=== PATIENT | female | born 1955 | race Caucasian/White ===

== ENCOUNTER 2018-03-05 05:43 | Inpatient (IN) | payer OTHER ==
[2018-03-05] MEDS: ONDANSETRON 4 MG INJ IV ×2 (07:01→17:50)
[2018-03-05] MEDS: SOD CHLORIDE 0.9% 1,000 ML IV ×4 (07:01→20:30)
[2018-03-05] MEDS: HYDROmorphONE 1 MG/ML SYG IV ×3 (07:01→21:52)
[2018-03-05 07:12] LABS: ADD MAN DIFF? NO
[2018-03-05 07:15] LABS: BASOPHILS % 0.3 % (0.0-2.0); EOSINOPHILS % 0.2 % (0.0-7.0); HEMATOCRIT 42.7 % (37.0-47.0); HEMOGLOBIN 14.7 g/dl (12.0-16.0); LYMPHOCYTES # 0.7 10^3/ul (0.8-2.9); LYMPHOCYTES % 6.7 % (15.0-51.0); MEAN CORPUSCULAR HEMOGLOBIN 33.4 pg (29.0-33.0); MEAN CORPUSCULAR HGB CONC 34.4 g/dl (32.0-37.0); MONOCYTE # 0.5 10^3/ul (0.3-0.9); MONOCYTES % 4.8 % (0.0-11.0); NEUTROPHIL # 9.1 10^3/ul (1.6-7.5); NEUTROPHILS % 87.6 % (39.0-77.0); PLATELET COUNT 100 10^3/UL (140-415); RED CELL DISTRIBUTION WIDTH 12.5 % (11.5-14.5)
[2018-03-05 07:15] LABS: WHITE BLOOD COUNT 10.4 10^3/ul (4.8-10.8)
[2018-03-05 07:18] LABS: ADD UMIC YES; UR ASCORBIC ACID NEGATIVE (NEGATIVE); UR BACTERIA FEW /HPF (NONE SEEN); UR BILIRUBIN (Dip) NEGATIVE (NEGATIVE); UR BLOOD (Dip) 1+ mg/dL (NEGATIVE); UR CLARITY CLEAR (CLEAR); UR COLOR YELLOW (YELLOW); UR GLUCOSE (Dip) NEGATIVE (NEGATIVE); UR KETONES (Dip) NEGATIVE (NEGATIVE); UR LEUKOCYTE ESTERASE (Dip) NEGATIVE Leu/ul (NEGATIVE); UR NITRITE (Dip) NEGATIVE (NEGATIVE); UR RBC 1 /HPF (0-5); UR SPECIFIC GRAVITY (Dip) 1.011 (1.003-1.030); UR TOTAL PROTEIN (Dip) NEGATIVE (NEGATIVE); UR UROBILINOGEN (Dip) NEGATIVE (NEGATIVE); UR WBC 1 /HPF (0-5)
[2018-03-05 07:32] LABS: ALANINE AMINOTRANSFERASE 167 IU/L (13-69); ALBUMIN 4.4 g/dl (3.3-4.9); ALBUMIN/GLOBULIN RATIO 1.04; ALKALINE PHOSPHATASE 91 IU/L (42-121); ANION GAP 16 (8-16); ASPARTATE AMINO TRANSFERASE 245 IU/L (15-46); BILIRUBIN,INDIRECT 0.7 mg/dl (0-1.1); BILIRUBIN,TOTAL 0.7 mg/dl (0.2-1.3); BLOOD UREA NITROGEN 11 mg/dl (7-20); CARBON DIOXIDE 29 mmol/L (21-31); CHLORIDE 105 mmol/L (97-110); CREATININE 0.66 mg/dl (0.44-1.00); GLUCOSE 113 mg/dl (70-220); POTASSIUM 4.3 mmol/L (3.5-5.1); SODIUM 146 mmol/L (135-144); TOTAL PROTEIN 8.6 g/dl (6.1-8.1)
[2018-03-05] MEDS: SOD CHLORIDE 0.9% 100 ML (08:37)
[2018-03-05] MEDS: IOHEXOL 300MG/ML 150 ML BTL (08:37)
[2018-03-05 09:13] LABS: LIPASE 10810 U/L (23-300)
[2018-03-05] MEDS ORDERED: SOD CHLORIDE 0.9% 1,000 ML IV (12:05)
[2018-03-05] MEDS ORDERED: ONDANSETRON 4 MG INJ IV (12:30)
[2018-03-05] MEDS ORDERED: BISACODYL 10 MG SUPP PR (12:30)
[2018-03-05] MEDS ORDERED: ACETAMINOPHEN 325 MG TAB PO ×2 (12:30)
[2018-03-05] MEDS ORDERED: MAGNESIUM HYDROXIDE 30ML CUP PO (12:30)
[2018-03-05] MEDS ORDERED: NACL 0.9% 3 ML SYG IV (12:30)
[2018-03-05] MEDS ORDERED: DOCUSATE SODIUM 100 MG CAP PO (12:30)
[2018-03-05 12:31] LABS: INR 0.96; PROTIME 12.9 Sec (11.9-14.9)
[2018-03-05 12:32] LABS: PARTIAL THROMBOPLASTIN TIME 30.2 Sec (25.0-35.0)
[2018-03-05] MEDS: morphine 2 MG INJ IV (13:52)
[2018-03-05 14:15] LABS: HAAIG REFLEX REFLEX FILED
[2018-03-05 14:57] LABS: HEPATITIS B SURFACE ANTIGEN NEGATIVE (NEGATIVE)
[2018-03-05 15:15] LABS: HEPATITIS B CORE ANTIBODY NEGATIVE (NEGATIVE); HEPATITIS C VIRAL ANTIBODY NEGATIVE (NEGATIVE)
[2018-03-05] MEDS: FAMOTIDINE 20 MG INJ IV (21:00)
[2018-03-05 22:43] LABS: ALPHA FETOPROTEIN 4.81 IU/L (0.00-7.21)
[2018-03-05 22:43] LABS: CANCER ANTIGEN 19-9 30.5 U/ml (0.0-37.0)
[2018-03-06] MEDS: SOD CHLORIDE 0.9% 1,000 ML IV ×4 (04:30→20:30)
[2018-03-06 06:05] LABS: ADD MAN DIFF? NO
[2018-03-06 06:08] LABS: BASOPHILS % 0.3 % (0.0-2.0); EOSINOPHILS # 0.1 10^3/ul (0.0-0.5); EOSINOPHILS % 0.5 % (0.0-7.0); HEMATOCRIT 40.8 % (37.0-47.0); HEMOGLOBIN 13.7 g/dl (12.0-16.0); LYMPHOCYTES # 2.5 10^3/ul (0.8-2.9); LYMPHOCYTES % 23.4 % (15.0-51.0); MEAN CORPUSCULAR HEMOGLOBIN 32.9 pg (29.0-33.0); MEAN CORPUSCULAR HGB CONC 33.6 g/dl (32.0-37.0); MEAN CORPUSCULAR VOLUME 98.1 fl (82.0-101.0); MEAN PLATELET VOLUME 11.1 fl (7.4-10.4); MONOCYTE # 0.5 10^3/ul (0.3-0.9); MONOCYTES % 4.4 % (0.0-11.0); NEUTROPHIL # 7.5 10^3/ul (1.6-7.5); NEUTROPHILS % 70.9 % (39.0-77.0); PLATELET COUNT 121 10^3/UL (140-415); RED BLOOD COUNT 4.16 10^6/ul (4.20-5.40)
[2018-03-06 06:08] LABS: WHITE BLOOD COUNT 10.5 10^3/ul (4.8-10.8)
[2018-03-06 06:27] LABS: HEMOGLOBIN A1C 5.9 % (0-5.9)
[2018-03-06 06:35] LABS: CHOL/HDL RATIO 2.4 RATIO; HDL CHOLESTEROL 53 mg/dl (35-98); LDL CHOLESTEROL,CALCULATED 58 mg/dl; TRIGLYCERIDES 88 mg/dl (0-149)
[2018-03-06 06:35] LABS: CHOLESTEROL 129 mg/dl (100-200)
[2018-03-06 06:37] LABS: ALANINE AMINOTRANSFERASE 109 IU/L (13-69); ALBUMIN 3.7 g/dl (3.3-4.9); ALBUMIN/GLOBULIN RATIO 0.97; ALKALINE PHOSPHATASE 76 IU/L (42-121); AMYLASE 451 U/L (11-123); ANION GAP 14 (8-16); ASPARTATE AMINO TRANSFERASE 74 IU/L (15-46); BILIRUBIN,INDIRECT 1.2 mg/dl (0-1.1); BILIRUBIN,TOTAL 1.2 mg/dl (0.2-1.3); BLOOD UREA NITROGEN 11 mg/dl (7-20); CALCIUM 8.4 mg/dl (8.4-10.2); CARBON DIOXIDE 27 mmol/L (21-31); CHLORIDE 109 mmol/L (97-110); CREATININE 0.62 mg/dl (0.44-1.00); GLUCOSE 106 mg/dl (70-220); MAGNESIUM 2.2 mg/dl (1.7-2.5); SODIUM 146 mmol/L (135-144); TOTAL PROTEIN 7.5 g/dl (6.1-8.1)
[2018-03-06 06:55] LABS: LIPASE 2101 U/L (23-300)
[2018-03-06] MEDS: FAMOTIDINE 20 MG INJ IV ×2 (08:24→21:52)
[2018-03-06 11:02] LABS: MITOCHONDRIAL TB NEGATIVE (NEGATIVE); SMOOTH MUSCLE AB SCREEN NEGATIVE (NEGATIVE)
[2018-03-06 14:01] LABS: ANA SCREEN NEGATIVE (NEGATIVE)
[2018-03-07] MEDS: SOD CHLORIDE 0.9% 1,000 ML IV ×3 (01:07→09:42)
[2018-03-07 06:58] LABS: ALANINE AMINOTRANSFERASE 63 IU/L (13-69); ALBUMIN 3.3 g/dl (3.3-4.9); ALBUMIN/GLOBULIN RATIO 0.91; ALKALINE PHOSPHATASE 64 IU/L (42-121); AMYLASE 91 U/L (11-123); ANION GAP 11 (8-16); ASPARTATE AMINO TRANSFERASE 36 IU/L (15-46); BILIRUBIN,INDIRECT 0.7 mg/dl (0-1.1); BILIRUBIN,TOTAL 0.7 mg/dl (0.2-1.3); BLOOD UREA NITROGEN 11 mg/dl (7-20); CALCIUM 8.2 mg/dl (8.4-10.2); CARBON DIOXIDE 25 mmol/L (21-31); CHLORIDE 112 mmol/L (97-110); CREATININE 0.66 mg/dl (0.44-1.00); GLUCOSE 102 mg/dl (70-220); LIPASE 239 U/L (23-300); POTASSIUM 4.1 mmol/L (3.5-5.1); SODIUM 144 mmol/L (135-144); TOTAL PROTEIN 6.9 g/dl (6.1-8.1)
[2018-03-07] MEDS: FAMOTIDINE 20 MG INJ IV (09:43)
== END 2018-03-07 13:10 | disposition home or self-care (01) | DRG 440 ==
LOC: E/R 05:43 → MS2 03-06 16:45
DX: K85.90 Acute pancreatitis without necrosis or infection, unspecified (principal); D69.6 Thrombocytopenia, unspecified; K76.0 Fatty (change of) liver, not elsewhere classified
CPT/HCPCS: 36415; 74177; 74181; 74182; 76705; 80053; 80061; 81001; 82105; 82150; 83036; 83690; 83735; 85025; 85610; 85730; 86038; 86255; 86301; 86704; 86709; 86803; 87340; 96374; 96375; 99285-25